=== PATIENT | female | born 1955 | race Caucasian/White ===

== ENCOUNTER → 2016-10-31 | Outpatient (CLI) | payer BC ==
--- NOTE | 2016-11-01 09:14 | WWHP ---
DATE OF DICTATION: 10/31/16. CHIEF COMPLAINT: The patient is here for her routine gynecologic exam and mammogram. HPI: This is a 61-year-old G5, P4-0 -1-4 with an LMP of 2007. The patient does have a history of recurrent urinary tract infections and had two last year. She did use the Macrobid prescription that I had given her and her symptoms resolved quickly during those 2 episodes. She also had one herpes outbreak and again would like a prescription for Valtrex that she can use as needed. She is otherwise without complaints and denies any postmenopausal bleeding. PAST MEDICAL HISTORY: Unremarkable. MEDICATIONS: She is currently on amoxicillin following a tooth extraction which she will be on for a short while. She takes a multivitamin daily. ALLERGIES: No known drug allergies. 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 SOCIAL HISTORY: She denies tobacco and drug use and has 0 to 1 alcohol drinks per week. She is and is not seeing anybody and is not sexually active. 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 REVIEW OF SYSTEMS: She has gained 3 pounds over the last year. She denies respiratory, cardiac, or GI problems. PHYSICAL EXAM: Blood pressure 126/83. Height 5 feet 7 inches. Weight 191 pounds. Temperature 97.7, pulse 73. This is a well-developed, well-nourished female who is alert and oriented x3 in no acute distress. HEENT is within normal limits. NECK: Supple without mass or thyromegaly. CHEST AND LUNGS: Clear to auscultation. HEART: Regular rate and rhythm. Breasts are without mass or discharge. Axillary exam is negative for adenopathy. BACK: Negative for CVA tenderness. ABDOMEN: Soft, nontender, without palpable masses. PELVIC EXAM: External genitalia reveals mild atrophy without lesions. Cervix and vagina reveal mild atrophy without lesions. There is a grade 2 cystocele at rest and a grade 2 to 3 cystocele with Valsalva and this is stable from last year. There is also a grade 2 rectocele noted. There is no significant uterine prolapse. The uterus is midposition, nongravid size and nontender. There are no palpable adnexal masses or tenderness. Rectovaginal exam confirms a small rectocele and is negative for mass or tenderness and is negative for occult blood. EXTREMITIES: Nontender. IMPRESSION: 1. A 61-year-old menopausal female with stable grade 2 to 3 cystocele and a grade 2 rectocele. This is asymptomatic. 2. History of recurrent urinary tract infections with no current urinary symptoms at this time. 3. History of genital HSV with infrequent outbreaks. PLAN: 1. Pap smear was deferred, since she had a normal one last year. 2. Self-breast examination was discussed. 3. Mammogram will be done today. 4. Osteoporosis prevention was discussed. We will plan on performing her first bone density test next year at age 62. 5. A prescription for Macrobid b.i.d. x7 days and was given to the patient with 3 refills. She will use this if she develops her typical UTI symptoms. 6. Valtrex 500 mg b.i.d. x3 days if she develops her typical HSV symptoms. Four refills will be given as well. 7. She will return in one year.
--- NOTE | 2016-11-01 10:20 | MM ---
Reason for exam: screening (asymptomatic). Last mammogram was performed 1 year ago. History: Patient is postmenopausal. Physical Findings: A clinical breast exam by your physician is recommended on an annual basis and results should be correlated with mammographic findings. MG Screening Mammo w CAD Bilateral CC and MLO view(s) were taken. Prior study comparison: October 26, 2015, bilateral MG screening mammo w CAD. February 19, 2015, mammogram, performed at [facility]. February 09, 2014, mammogram, performed at [facility]. There are scattered fibroglandular densities. Finding: There are a few typically benign round calcifications in both breasts. Asymmetric breast tissue. in the right breast, stable. There is no discrete abnormality. ASSESSMENT: Benign, BI-RAD 2 RECOMMENDATION: Routine screening mammogram of both breasts in 1 year.
== END | disposition home or self-care (01) ==
LOC: WWCWWP 15:54
PROVIDERS: ATTEND Obstetrics & Gynecology
DX: Z12.31 Encounter for screening mammogram for malignant neoplasm of breast (principal)

== ENCOUNTER → 2017-11-06 | Outpatient (CLI) | payer BC ==
[2017-11-06 16:08] VITALS: BP 120/79; PULSE 70; TEMP 98; BMI 31.3
--- NOTE | 2017-11-06 16:37 | P.HPOB ---
History of Present Illness H&P Date: 11/06/17 Chief Complaint: The patient is here for her routine gynecologic exam and mammogram. This is a 62-year-old with an LMP of 2007. The patient does have a history of recurrent urinary tract infections. She does not have any urinary symptoms at this time, but is requesting a prescription for Macrobid to be used as needed she will be traveling around the country this summer. She also has infrequent genital herpes outbreaks and she is requesting a prescription for Valtrex to be used as needed. She is without current gynecologic complaints and denies any postmenopausal bleeding. Review of Systems The patient has gained 9 pounds over the last year. She denies respiratory or cardiac problems. G.I.: occasional gastric reflux. 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 She has had genital HSV with infrequent outbreaks since age 20. She has no other history of STDs. History of Any Multi-Drug Resistant Organisms: None Reported Past Surgical History: No Surgical Hx Reported, Section, Cholecystectomy, Orthopedic Surgery (Arthroscopic knee surgery on the right) Additional Past Surgical History / Comment(s): Renal cyst removed in the past. Past Anesthesia/Blood Transfusion Reactions: No Reported Reaction Past Psychological History: No Psychological Hx Reported Smoking Status: Former smoker (Quit smoking at age 27) Past Alcohol Use History: Rare (2 per year) Past Drug Use History: None Reported Additional History: She is . 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 - Past Family History Brother(s) Family Medical History: Cancer (Lung), Diabetes Mellitus Sister(s) Family Medical History: Diabetes Mellitus Mother Family Medical History: Cancer (Lung) Medications and Allergies Home Medications Medication Instructions Recorded Confirmed Type No Known Home Medications [No 11/06/17 11/06/17 History Known Home Medications] Allergies Allergy/AdvReac Type Severity Reaction Status Date / Time No Known Allergies Allergy Unverified 11/06/17 16:05 Exam - Vital Signs Vital signs: Vital Signs Temp Pulse BP 11/06/17 16:05 98.0 F 70 120/79 Intake and Output 11/06/17 11/06/17 11/06/17 06:59 14:59 22:59 Other: Weight 90.718 kg Height 5'7", BMI 31.3. This is a well-developed well-nourished white female who is alert and oriented times 3 in no acute distress. HEENT: Within normal limits. NECK: Supple without mass or thyromegaly. CHEST AND LUNGS: Clear to auscultation. HEART: Regular rate and rhythm. BREASTS: Are without mass or discharge. AXILLARY EXAM: Negative for adenopathy. BACK: Negative for CVA tenderness. ABDOMEN: Soft, nontender, without palpable masses. PELVIC EXAM: Normal external genitalia with mild atrophy. Cervix and vagina reveals a grade 2 cystocele and grade 1 to 2 rectocele. This is stable from previous exams. There is no unusual discharge. The uterus is midposition, nongravid size and nontender. There are no palpable adnexal masses or tenderness. RECTAL EXAM: rectovaginal exam is negative for mass or tenderness and is negative for occult blood. EXTREMITIES: Nontender. IMPRESSION: 1. 62-year-old menopausal female with a grade 2 cystocele and grade 1 to 2 rectocele which is stable from previous exams. 2. Occasional urinary tract infections with no urinary symptoms at this time. 3. History of genital HSV with infrequent outbreaks. PLAN: 1. Pap smear was performed. 2. Self breast awareness was discussed. 3. Screening mammogram will be done today. 4. Osteoporosis prevention was discussed. I have recommended bone density screening. She states she would like to do this next year at her annual visit. 5. An electronic prescription will be sent in for Valtrex 500 mg b.i.d. times 3 days to be started at the onset of HSV symptoms. She will be given 3 refills. Another prescription will be sent for Macrobid b.i.d. times 7 days to be used for UTI symptoms. She will also be given 3 refills on this. 6. She will return in one year.
--- NOTE | 2017-11-07 11:05 | MM ---
Reason for exam: screening (asymptomatic). Last mammogram was performed 1 year ago. History: Patient is postmenopausal. Physical Findings: A clinical breast exam by your physician is recommended on an annual basis and results should be correlated with mammographic findings. MG 3D Screening Mammo W/Cad Bilateral CC and MLO view(s) were taken. Prior study comparison: October 31, 2016, bilateral MG screening mammo w CAD. October 26, 2015, bilateral MG screening mammo w CAD. The breast tissue is heterogeneously dense. This may lower the sensitivity of mammography. Stable benign calcifications. Focal asymmetry upper outer right breast is stable. No significant changes when compared with prior studies. ASSESSMENT: Benign, BI-RAD 2 RECOMMENDATION: Routine screening mammogram of both breasts in 1 year.
== END | disposition home or self-care (01) ==
LOC: WWCWWP 14:55
PROVIDERS: ATTEND Obstetrics & Gynecology
DX: Z12.31 Encounter for screening mammogram for malignant neoplasm of breast (principal)
CPT/HCPCS: 77063; 77067

== ENCOUNTER → 2018-08-08 | Outpatient (CLI) | payer BC ==
--- NOTE | 2018-08-08 15:35 | US ---
EXAMINATION TYPE: US kidneys/renal and bladder DATE OF EXAM: 08/08/2018 COMPARISON: NONE CLINICAL HISTORY: 63-year-old female N28.1 Renal Cyst. TECHNIQUE: Multiple sonographic images of the kidneys and bladder are obtained. 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 She has had surgery on her right kidney, for the UTI's. Right Kidney: 1.7 x 1.0 x 1.6 cm possible complex cystic lesion, irregular contour . Suggestion of mi ld hydronephrosis. Left Kidney: No hydronephrosis seen. Bladder: Prominent urinary bladder distention. Left jet seen Incidental finding of 1.9cm endometrium in post menopausal patient. Patient states she does not take hormone replace therapy. IMPRESSION: 1. There seems to be mild right-sided hydronephrosis. Further clinical correlation recommended to exc lude distal ureteral obstruction. 2. Possible 1.7 cm complex cyst of the upper pole right kidney. Kidney mass protocol CT or MRI can fu rther evaluate. 3. Only the left ureteral jet is seen. 4. Further clinical evaluation of thickened endometrium in a postmenopausal female (1.9 cm). Endometr ial hyperplasia, polyps, or endometrial carcinoma are in the differential.
== END | disposition home or self-care (01) ==
LOC: RADUSWWP 14:15
PROVIDERS: ATTEND Urology
DX: N28.1 Cyst of kidney, acquired (principal)
CPT/HCPCS: 76770

== ENCOUNTER → 2020-07-14 | Outpatient (CLI) | payer BC ==
[2020-07-14 09:01] VITALS: BP 128/79; PULSE 69; RESP 18; TEMP 98.2
--- NOTE | 2020-07-14 09:54 | P.HPOB ---
History of Present Illness H&P Date: 07/14/20 Chief Complaint: The patient is here for her routine gynecologic exam. This is a 65-year-old 014 with an LMP of 2007. The patient is without gynecologic complaints. She is currently on Macrobid for a UTI. UTIs haven't been infrequent this year. She also has not had any HSV outbreaks but would still like to have a prescription available if needed for this. She denies any external vaginal prolapse. Review of Systems She has lost about 10 pounds over the past 2 years. She denies respiratory or cardiac problems. GI: The antibiotic she is taking currently is causing some GI upset. 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 She has had genital HSV with infrequent outbreaks since age 20. She has no other history of STDs. History of Any Multi-Drug Resistant Organisms: None Reported Past Surgical History: No Surgical Hx Reported, Section, Cholecystectomy, Orthopedic Surgery Additional Past Surgical History / Comment(s): Renal cyst removed in the past. Past Anesthesia/Blood Transfusion Reactions: No Reported Reaction Past Psychological History: No Psychological Hx Reported Smoking Status: Former smoker Past Alcohol Use History: Rare (3 per year) Additional Past Alcohol Use History / Comment(s): Quit smoking at age 27. Past Drug Use History: None Reported Additional History: She is . She now works at the [employer]. - Past Family History Brother(s) Family Medical History: Cancer, Diabetes Mellitus Additional Family Medical History / Comment(s): Lungs cancer. Sister(s) Family Medical History: Diabetes Mellitus Mother Family Medical History: Cancer Additional Family Medical History / Comment(s): Lung cancer. Medications and Allergies Home Medications Medication Instructions Recorded Confirmed Type Nitrofurantoin Monohyd/M-Cryst 100 mg PO Q12HR #14 cap 11/06/17 07/14/20 Rx [Macrobid] Cyanocobalamin [Vitamin B-12] 1,000 mcg PO DAILY 07/14/20 07/14/20 History Multivit with Calcium,Iron,Min 1 each PO DAILY 07/14/20 07/14/20 History [Women's Multivitamin] Allergies Allergy/AdvReac Type Severity Reaction Status Date / Time sulfamethoxazole AdvReac Severe Rash/Hives Unverified 05/14/18 11:55 [From Bactrim] trimethoprim [From Bactrim] AdvReac Severe Rash/Hives Unverified 05/14/18 11:55 Exam Vital Signs Temp Pulse Resp BP Pulse Ox 07/14/20 08:59 98.2 F 69 18 128/79 98 Intake and Output 07/13/20 07/14/20 07/14/20 22:59 06:59 14:59 Other: Weight 85.275 kg Height 5 feet 7 inches, weight 188 pounds, BMI 29.4. This is a well-developed well-nourished white female who is alert and oriented times 3 in no acute distress. HEENT: Within normal limits. NECK: Supple without mass or thyromegaly. CHEST AND LUNGS: Clear to auscultation. HEART: Regular rate and rhythm. BREASTS: Are without mass or discharge. AXILLARY EXAM: Negative for adenopathy. BACK: Negative for CVA tenderness. ABDOMEN: Soft, nontender, without palpable masses. PELVIC EXAM: Normal external genitalia with mild atrophy. Cervix and vagina appear normal with mild atrophy. There is no unusual discharge. There is a grade 2 cystocele at rest. This extends to a grade 2-3 cystocele with Valsalva. There is a grade 1 uterine prolapse and a grade 1-2 rectocele. The uterus is midposition, nongravid size and nontender. There are no palpable adnexal masses or tenderness. RECTAL EXAM: Rectovaginal exam is negative for mass or tenderness and is negative for occult blood. EXTREMITIES: Nontender. IMPRESSION: 1. 65-year-old menopausal female with grade 2-3 cystocele, grade 1 uterine prolapse, and grade 1-2 rectocele. This is asymptomatic other than she wonders if this causes UTIs. She has had infrequent UTIs this past year. 2. History of genital HSV with infrequent outbreaks. PLAN: 1. Pap smear cotest was performed. 2. Self breast awareness was discussed with the patient. 3. Screening mammogram is due and the order slip was given to the patient for this. Her appointment is in September 2020. 4. Osteoporosis prevention was discussed. I have stressed the importance of adequate calcium, vitamin D and regular exercise. Recommended amounts of calcium and vitamin D were also discussed. Bone density screening is recommended since she has not had this done. The order slip was given to the patient for this. 5. A prescription for Valtrex [facility] that she can use at the onset of any outbreak. 6. We have discussed pelvic prolapse and she will call she's having issues with this. We have discussed the option of surgery. In her symptoms are worsening she will return for reevaluation. 7. She was advised to return in one year for her annual well woman exam and as needed.
--- NOTE | 2020-07-21 13:22 | P.PN ---
Progress Note - Text Progress Note Date: 07/21/20 OUTPATIENT FOLLOW-UP NOTE TEST(S)/RESULTS: Test results from 07/14/2020 include negative Pap smear and negative high-risk HPV testing. METHOD OF NOTIFICATION: Patient was notified by phone. PATIENT COMMENTS: The patient states she did receive a Covid vaccination DIAGNOSIS: Negative Pap smear cotest. DISCUSSION: PLAN: She was advised to return in one year for her annual well woman exam.
== END | disposition home or self-care (01) ==
LOC: WWCWWP 08:45
PROVIDERS: ATTEND Obstetrics & Gynecology
DX: Z53.9 Procedure and treatment not carried out, unspecified reason (principal)

== ENCOUNTER → 2020-09-22 | Outpatient (CLI) | payer BC ==
--- NOTE | 2020-09-22 10:32 | BD ---
EXAMINATION TYPE: Axial Bone Density DATE OF EXAM: 09/22/2020 COMPARISON: NONE CLINICAL HISTORY: Height: 66 Weight: 186.6 FRAX RISK QUESTIONS: Alcohol (3 or more units per day): no Family History (Parent hip fracture): no Glucocorticoids (More than 3mos): no (Ex: prednisone, prednisolone, methylprednisolone, dexamethasone, and hydrocortisone). History of Fracture in Adulthood: no Secondary Osteoporosis: 1. Type 1 Diabetes: no 2. Hyperthyroidism: no 3. Menopause before 45: no 4. Malnutrition: no 5. Chronic liver disease: no Rheumatoid Arthritis: no Current Tobacco Use: no RISK FACTORS HISTORY OF: Family History of Osteoporosis: no Active: yes Diet low in dairy products/other sources of calcium: no Postmenopausal woman: age 52 Lost more than 2 inches in height since high school: no MEDICATIONS: none Additional History: EXAM MEASUREMENTS: Bone mineral densitometry was performed using the [employer] System. Bone mineral density as measured about the Lumbar spine is: ----- L1-L4(G/cm2): 1.127 T Score Values are as follows: ----- L2: -0.4 ----- L3: -0.8 ----- L4: -0.4 ----- L1-L4: -0.4 Bone mineral density : baseline Bone mineral density about the R hip (g/cm2): 0.910 Bone mineral density about the L hip (g/cm2): 0.910 T Score values are as follows: -----R Neck: -0.9 -----L Neck: -0.9 -----R Total: -0.7 -----L Total: -0.8 Bone mineral density : baseline IMPRESSION: No evidence for osteoporosis or osteopenia. NOTE: T-SCORE=SD OF THE YOUNG ADULT MEAN.
--- NOTE | 2020-09-22 14:04 | P.PN ---
Progress Note - Text Progress Note Date: 09/22/20 OUTPATIENT FOLLOW-UP NOTE TEST(S)/RESULTS: Bone density test done on 09/22/2020 was normal. This was a baseline study. METHOD OF NOTIFICATION: The patient was notified by phone. PATIENT COMMENTS: The patient is happy to hear this result. DIAGNOSIS: Multiple bone density test. DISCUSSION: I have reminded the patient to try to get adequate calcium, vitamin D and regular exercise. PLAN: Repeat bone density test in 5 years.
--- NOTE | 2020-09-23 10:41 | MM ---
Reason for exam: screening (asymptomatic). Last mammogram was performed 2 years and 11 months ago. History: Patient is postmenopausal. Physical Findings: A clinical breast exam by your physician is recommended on an annual basis and results should be correlated with mammographic findings. MG 3D Screening Mammo W/Cad Bilateral CC and MLO view(s) were taken. Prior study comparison: November 06, 2017, bilateral MG 3d screening mammo w/cad. October 31, 2016, bilateral MG screening mammo w CAD. The breast tissue is heterogeneously dense. This may lower the sensitivity of mammography. There is no discrete abnormality. Focal asymmetry upper outer right breast is stable. ASSESSMENT: Benign, BI-RAD 2 RECOMMENDATION: Routine screening mammogram of both breasts in 1 year.
== END | disposition home or self-care (01) ==
LOC: RADMAMWWP 09:31
PROVIDERS: ATTEND Obstetrics & Gynecology
DX: Z12.31 Encounter for screening mammogram for malignant neoplasm of breast (principal); Z13.820 Encounter for screening for osteoporosis; Z78.0 Asymptomatic menopausal state
CPT/HCPCS: 77063; 77067; 77080

== ENCOUNTER → 2021-01-12 | Outpatient (CLI) | payer BC ==
[2021-01-12 11:32] VITALS: BP 118/74; PULSE 82; RESP 18; TEMP 98.3
--- NOTE | 2021-01-12 12:46 | P.PN ---
Progress Note - Text Progress Note Date: 01/12/21 Chief Complaint: Greater bulge from the vagina with more frequent urinary tract infections. HPI: This is a 65-year-old with an LMP of 2007. The patient was recently treated for her third urinary tract infection during the past 7 months. She has a known cystocele and thinks that it is bulging more. She states she can feel something protruding from the vaginal opening at times. She has been trying to empty the bladder as thoroughly as possible when she does void. She is interested in looking into treatment options for the pelvic prolapse. She is not sexually active. ROS: She denies respiratory, cardiac, or GI problems. : As above. PE: Blood pressure: 118/74, Height: 5 feet 6 inches, Weight: 188 pounds, Temperature: 98.3, Pulse: 82. Pulse oximeter 97% This is a well developed, well nourished, white female who is alert and orientedx3, in no acute distress. Abdomen: Soft, nontender, without palpable masses. Pelvic exam: External genitalia reveals mild to moderate atrophy without lesions. With Valsalva a bulge is noted to fill the introitus. Vaginal exam reveals a grade 2 uterine prolapse with a grade 3 cystocele. A grade 1-2 rectocele is also noted. The uterus is mid positioned, nongravid size, and nontender. There are no palpable adnexal masses or tenderness. Impression: 1. 65-year-old menopausal female with symptomatic grade 3 cystocele with grade 2 uterine prolapse and grade 1-2 rectocele. 2. Frequent urinary tract infections during the past 7 months which may be related to decreased emptying of her bladder from the cystocele. Plan: 1. We have had a long discussion regarding options for the pelvic prolapse and symptoms associated with it. We have discussed conservative management, pessary used and surgery. She would like to look into surgical options. 2. We have a long discussion regarding surgical options including cystocele repair, with or without hysterectomy. We have also discussed the option of also having a rectocele repair done at the same time. 3. The patient will be referred to Dr. Stout to discuss possible surgical correction for her pelvic prolapse and symptoms. Time spent with the patient: 35 minutes
--- NOTE | 2021-01-18 18:33 | P.PN ---
Progress Note - Text Progress Note Date: 01/18/21 The patient has called saying she believes she has another urinary tract infection. She is again experiencing dysuria, urinary urgency, and urinary frequency. She did have relief after taking Macrobid last month. We are in the process of making a referral for her cystocele and vaginal prolapse. She has been taking Azo which seems to help with the discomfort. Impression: Recurrent urinary tract infection Plan: She is to give a urine specimen for urinalysis and culture with sensitivity. She will then take Macrobid 1 by mouth twice a day 7 days. The electronic prescription will be sent to [facility] pharmacy on
== END ==
LOC: WWCWWP 11:12
PROVIDERS: ATTEND Obstetrics & Gynecology
DX: N81.4 Uterovaginal prolapse, unspecified (principal); N81.6 Rectocele; Z88.2 Allergy status to sulfonamides; Z87.891 Personal history of nicotine dependence; Z87.440 Personal history of urinary (tract) infections

== ENCOUNTER → 2021-01-19 | Outpatient (CLI) | payer BC ==
[2021-01-19 11:12] LABS: Appearance,Urine Cloudy (Clear); Bacteria,Urine Rare /hpf; Bilirubin,Urine Negative (Negative); Blood,Urine Moderate (Negative); Color,Urine Yellow; Glucose,Urine (UA) Negative (Negative); Ketones,Urine Negative (Negative); Leukocyte Esterase,Urine Large (Negative); Mucus,Urine Rare /hpf; Nitrite,Urine Positive (Negative); PH, Urine 5.5 (5.0-8.0); Protein,Urine 1+ (Negative); RBC,Urine 58 /hpf (0-5); Specific Gravity,Urine 1.019 (1.001-1.035); Squamous Epithelial Cell,Urine 4 /hpf (0-4); Urobilinogen,Urine <2.0 mg/dL (<2.0); WBC,Urine >182 /hpf (0-5)
--- NOTE | 2021-01-20 13:26 | P.PN ---
Progress Note - Text Progress Note Date: 01/20/21 Urinalysis from 01/19/21 was positive for leukocyte esterase and nitrite. A/ cystitis UTI P/Macrobid BID x 7d which patient has started. To call if not fully resolved. Culture is pending
== END | disposition home or self-care (01) ==
LOC: LABWHC1 08:57
PROVIDERS: ATTEND Obstetrics & Gynecology
DX: N30.00 Acute cystitis without hematuria (principal); R30.0 Dysuria; R39.15 Urgency of urination; R35.0 Frequency of micturition
CPT/HCPCS: 81001; 87077; 87086; 87186

== ENCOUNTER → 2023-05-15 | Outpatient (CLI) | payer MEDICARE ==
[2023-05-15 18:12] LABS: Basophils # (A) 0.05 X 10*3/uL (0.00-0.10); Basophils % (A) 0.7 %; Eosinophils # (A) 0.25 X 10*3/uL (0.04-0.35); Eosinophils % (A) 3.3 %; HCT 39.8 % (37.2-46.3); HGB 12.4 g/dL (12.0-15.0); Lymphocytes # (A) 2.77 X 10*3/uL (0.90-5.00); Lymphocytes % (A) 36.9 %; MCH 27.7 pg (27.0-32.0); MCHC 31.2 g/dL (32.0-37.0); Mean Platelet Volume 10.7 FL (9.5-12.2); Monocytes # (A) 0.36 X 10*3/uL (0.20-1.00); Monocytes % (A) 4.8 %; NRBC Per 100 WBC 0 X 10*3/uL (0.00-0.01); Neutrophils # (A) 4.05 X 10*3/uL (1.80-7.70); Platelet Count 264 X 10*3/uL (140-440); RBC 4.47 X 10*6/uL (4.10-5.20); RDW 13.7 % (11.5-14.5)
[2023-05-15 18:17] LABS: Blood Urea Nitrogen 15.3 mg/dL (9.0-27.0); Carbon Dioxide 28.4 mmol/L (21.6-31.8); Chloride 103 mmol/L (96-109); Potassium 4.1 mmol/L (3.5-5.5); Sodium 143 mmol/L (135-145)
== END | disposition home or self-care (01) ==
LOC: LABPAT 14:23
PROVIDERS: ATTEND Obstetrics & Gynecology
DX: Z01.818 Encounter for other preprocedural examination (principal); N81.11 Cystocele, midline
CPT/HCPCS: 80051; 82565; 84520; 85025; 86850; 86900; 86901; 87086; 93005

== ENCOUNTER 2023-05-21 06:45 | Day surgery (SDC) | payer MEDICARE, OTHER ==
[2023-05-14 14:30] VITALS: BMI 29.0
--- NOTE | 2023-05-17 16:55 | P.HPIHPCON ---
History of Present Illness H&P Date: 05/17/23 Chief Complaint: pelvic organ prolapse Ms. Mccord is a 68 year old who presents for surgical management of pelvic organ prolapse. This was first noticed 4 years ago. The patient complaints of a bulge, incomplete emptying of her bladder, and recurrent urinary tract infection (most recently in December of 2022 for which she was treated with tetracycline). The bulge is estimated to be gold ball sized. The patient states she changes position to empty the bladder. She states symptoms are accentuated by standing, lifting, and straining. The symptoms are not relieved by lying down. She denies any recent pelvic pain. She denies urinary incontinence. She is not sexually active and does not plan to be in the future. Consent for Procedure: I have explained the operation/procedure to the patient, including the risks, benefits, side effects, alternative therapies (including not receiving the proposed treatment or service), the likelihood of the patient achieving his/her goals, and potential recuperation problems for the procedure/sedation/analgesia, as well as any blood products, if indicated. I also explained to the patient the risks, benefits and side effects of the alternatives, as well as the risks related to not receiving the proposed procedure, care, treatment, or services. Past Medical History Past Medical History: Diabetes Mellitus, Hyperlipidemia Additional Past Medical History / Comment(s): Hiatal hernia. Chronic left hip problems/pain. Borderline Diabetes. 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 History of Any Multi-Drug Resistant Organisms: None Reported Past Surgical History: Section, Cholecystectomy, Orthopedic Surgery Additional Past Surgical History / Comment(s): Renal cyst removed, right rotator cuff repair, left knee meniscus repair. Past Anesthesia/Blood Transfusion Reactions: No Reported Reaction Past Psychological History: No Psychological Hx Reported Smoking Status: Former smoker Past Alcohol Use History: Rare Additional Past Alcohol Use History / Comment(s): Quit smoking at age 27. Past Drug Use History: None Reported - Past Family History Brother(s) Family Medical History: Cancer, Diabetes Mellitus Additional Family Medical History / Comment(s): Lung cancer. Sister(s) Family Medical History: Diabetes Mellitus Mother Family Medical History: Cancer Additional Family Medical History / Comment(s): Lung cancer. Medications and Allergies Home Medications Medication Instructions Recorded Confirmed Type Multivit with Calcium,Iron,Min 1 each PO DAILY 07/14/20 05/14/23 History [Women's Multivitamin] Acetaminophen [Tylenol Extra 500 mg PO HS 05/14/23 05/14/23 History Strength] carBAMazepine [TEGretol XR] 100 mg PO BID 05/14/23 05/14/23 History Allergies Allergy/AdvReac Type Severity Reaction Status Date / Time ciprofloxacin Allergy Rash/Hives Unverified 05/14/23 14:03 sulfamethoxazole AdvReac Severe Rash/Hives Unverified 05/14/23 14:03 [From Bactrim] trimethoprim [From Bactrim] AdvReac Severe Rash/Hives Unverified 05/14/23 14:03 Surgical - Exam Focused physical exam is performed. This is a healthy-appearing female in no apparent distress. Breathing is non-labored, the patient is conversational. Abdomen is soft and non-tender. Extremities are non-edematous and nontender. Assessment and Plan Assessment: 68 year old with grade 3 pelvic organ prolapse Plan: Risks, benefits, and alternatives to vaginal hysterectomy with bilateral salpingo-oophorectomy and anterior repair were discussed with the patient including risk of bleeding, infection, and damage to surrounding structures including bladder/bowel/ureters. We also discussed that if the fallopian tubes and ovaries are not easily accessible at the time of surgery, they will be left in situ. Patient understands these risks and desires to proceed with surgery. All questions answered. Time with Patient: Less than 30
[2023-05-21] MEDS ORDERED: HYDROmorphone 0.5 MG/0.5 ML SYRINGE IVP PRN (07:00)
[2023-05-21] MEDS ORDERED: ONDANSETRON 4 MG/2 ML VIAL IVP ONE (07:00)
[2023-05-21] MEDS ORDERED: MIDAZOLAM 2 MG/2 ML VIAL IV PRN (07:00)
[2023-05-21] MEDS ORDERED: DEXAMETHASONE SOD PHOSPHATE 4 MG/ML 1 ML VIAL IV ONE (07:00)
[2023-05-21 07:35] LABS: Glucose,Whole Blood 95 mg/dL (70-110)
[2023-05-21] MEDS: LACTATED RINGERS 1,000 ML IV SCH (07:36)
[2023-05-21] MEDS ORDERED: MIDAZOLAM 2 MG/2 ML VIAL IVP ONE (08:06)
[2023-05-21] MEDS ORDERED: fentaNYL (PF) 50 MCG/1 ML VIAL IVP ONE (08:07)
[2023-05-21] MEDS ORDERED: SUCCINYLCHOLINE CHLORIDE 200 MG/10 ML VIAL IV ONE (08:32)
[2023-05-21] MEDS ORDERED: WATER FOR INJECTION, STERILE 10 ML VIAL IV ONE (08:32)
[2023-05-21] MEDS ORDERED: ROCURONIUM 10 MG/ML (5 ML VIAL) IV ONE (08:32)
[2023-05-21] MEDS ORDERED: NEOSTIGMINE 1 MG/ML 10 ML VIAL ONE (08:32)
[2023-05-21] MEDS ORDERED: MORPHINE SULFATE (PF) 0.3 MG/0.3 ML SYR ONE (08:32)
[2023-05-21] MEDS ORDERED: LIDOCAINE 1% INJ 10MG/ML (20 ML MDV) ONE (08:32)
[2023-05-21] MEDS ORDERED: fentaNYL (PF) 50 MCG/ML 2 ML AMP ONE (08:32)
[2023-05-21] MEDS ORDERED: GLYCOPYRROLATE 0.2 MG/ML 2 ML VIAL ONE (08:32)
[2023-05-21] MEDS ORDERED: ePHEDrine 50 MG/ML 1 ML VIAL ONE (08:32)
[2023-05-21] MEDS ORDERED: diphenhydrAMINE 50 MG/ML 1 ML VIAL ONE (08:32)
[2023-05-21] MEDS ORDERED: KETOROLAC 15 MG/ML 1 ML VIAL ONE (08:32)
[2023-05-21] MEDS ORDERED: PROPOFOL 10 MG/ML 20 ML VIAL IV ONE (08:32)
[2023-05-21] MEDS ORDERED: ESTRADIOL 0.1 MG/GM VAGINAL CREAM 42.5 GM TUBE VAGINAL ONE (09:09)
[2023-05-21] MEDS ORDERED: VASOPRESSIN 20 UNIT/ML 1 ML VIAL SQ ONE (09:13)
[2023-05-21] MEDS ORDERED: diphenhydrAMINE 50 MG/ML 1 ML VIAL IVP PRN (10:16)
[2023-05-21] MEDS ORDERED: METOCLOPRAMIDE 5 MG/ML 2 ML VIAL IVP PRN (10:16)
[2023-05-21] MEDS ORDERED: ONDANSETRON 4 MG/2 ML VIAL IVP PRN (10:16)
--- NOTE | 2023-05-21 10:16 | P.OP ---
Date of Procedure: 05/21/23 Preoperative Diagnosis: 1. Grade 3 Cystocele 2. Grade 2 Uterovaginal Prolapse Postoperative Diagnosis: Same Procedure(s) Performed: Total Vaginal Hysterectomy, Anterior Repair Implants: None Anesthesia: CAPO Surgeon: Tonja Valdez Roundsman #1: Rosita Vital Estimated Blood Loss (ml): 50 IV fluids (ml): 500 Urine output (ml): 75 Pathology: other (uterus, cervix) Condition: stable Disposition: floor Indications for Procedure: 68 year old with grade 3 pelvic organ prolapse. Risks, benefits, and alternatives to vaginal hysterectomy with bilateral salpingo-oophorectomy and anterior repair were discussed with the patient including risk of bleeding, infection, and damage to surrounding structures including bladder/bowel/ureters. We also discussed that if the fallopian tubes and ovaries are not easily accessible at the time of surgery, they will be left in situ. Patient understands these risks and desires to proceed with surgery. All questions answered. Operative Findings: Pelvic organ prolapse as described in the indications. Description of Procedure: Prior to the beginning of the procedure the team paused to verify the patient's identity, as well as the procedure to be performed and the correct side/site. All equipment required was ready and available. The patient was positioned appropriately. Patient was cleaned and draped and legs were placed in lithotomy position using Freddy stirrups. Cramer catheter was placed to drain the bladder. A weighted speculum was placed in the posterior vaginal vault. The cervix was grasped with a double-tooth tenaculum. Pitressin was injected circumstantially around the cervix. With downward traction, a circumferential incision was made along the vaginal mucosa overlying the reflection. This allowed dissection and entrance into the posterior cul-de-sac. An 0-Vicryl suture was placed to tag the posterior peritoneum. At this time, the uterosacral ligaments were visualized. These were clamped and ligated with 0-Vicryl suture. The uterosacral ligaments were held bilaterally. The cervicovesical space was then created by both blunt and sharp dissection allowing the cardinal ligaments to be visualized. These were clamped and ligated with 0-Vicryl suture as well. Once in the cervicovesical space the uterosacral-cardinal ligament complex was completely ligated with 0-Vicryl suture. The uterine arteries were clamped and ligated with 0-Vicryl suture. The belen clamps were moved sequentially upward on the uterus until a small adnexal pedicle remained. The anterior cul-de-sac was now entered with electrocautery. The uterine specimen was delivered and sent for pathology. Bilateral adnexal pedicles were doubly ligated first with a transfixing 0-Vicryl suture and then reinforced with a free 0-Vicryl tie in the usual fashion. The large weighted speculum was removed and replaced with the small weighted speculum. A modified Zapata Culdoplasty was performed with the uterosacral ligaments held by pieces of 0-Vicryl. The vaginal cuff inferior to the level of the Zapata Culdoplasty was closed with 0-Vicryl sutures in a [id number] fashion. One [id number] suture was then placed superior to the level of the Zapata Culdoplasty. Attention was then turned to the anterior vaginal wall. Two Allis Clamps were used to grasp the vaginal mucoas and Pitressin was injected inferior to the vaginal epithelium as a means for hydro-dissection. A vertical midline incision was given from under the urethra to the level of the cuff. The underlying endopelvic fascia and cystocele was then dissected away from the vaginal epithelium using Metzenbaum scissors and allis clamps for retraction. The dissection was carried out to the lateral pelvic side wall on either side. A purse-string with 2-0 Vicryl was placed to approximate the endopelvic fascia over the cystocele, thus reducing it. Excess vaginal musosa was trimmed and the remaining vaginal mucosa was closed with 2-0 Vicryl suture. After completion of the case, a cramer catheter was inserted and noted to move freely into the urethra without tension. Clear urine was noted to drain from the catheter. Excellent hemostasis was noted at the end of the case. The vagina was packed with 1/2-inch iodoform packing coated in vaginal estrace cream. All instruments were removed from the patient. She was cleaned, dried, and awakened from anesthesia without difficulty. Sponge, lap, instrument, and needle counts were correct x2. She was taken to the PACU in stable condition.
[2023-05-21 10:50] LABS: Glucose,Whole Blood 148 mg/dL (70-110)
--- NOTE | 2023-05-21 13:22 | P.ANPRN ---
Procedure Note - Anesthesia - Epidural/Spinal Spinal Time Out Performed: Yes Date of Procedure: 05/21/23 Procedure Start Time: 12:07 Procedure Stop Time: 12:12 Location of Patient: PreOp Indication: Acute Post-Operative Pain, Requested by Surgeon (abeba) Sedation Type: Sedate with meaningful contact maintained Preparation: Sterile Prep Number of Attempts: 1 Position: Supine Catheter: None Needle Guage: 25 Injectate: Duramorph 300mcg and fentanyl 25mcg Blood Aspirated: No Pain Paresthesia on Injection Noted: No Events: Uneventful and Well Tolerated
[2023-05-21] MEDS: SENNOSIDES-DOCUSATE SODIUM 1 EACH TAB PO SCH (22:00)
[2023-05-22] MEDS: LACTATED RINGERS 1,000 ML IV SCH (03:09)
[2023-05-22] MEDS: IBUPROFEN 600 MG TAB PO PRN ×2 (03:59→20:18)
--- NOTE | 2023-05-22 09:28 | P.PN ---
Progress Note - Text Progress Note Date: 05/22/23 Ms. Mccord is a 68-year-old female had a history Total Vaginal Hysterectomy, Anterior Repair under general anesthesia, and spinal analgesia with Astramorph 300 g, and 25 g of fentanyl for postop pain. Today patient is comfortable sitting in her bed. Today patient rated her pain level 2 out of 10 in severity. Denied any fever, drowsiness, confusion. Denied any weakness, tingling sensation in her lower extremities. Denied any bowel or bladder problems. Moving all extremities without any difficulty. Able to walk without any difficulties. Vitals: Hemodynamically stable Continue oral pain medication as per primary team.
[2023-05-22 11:02] VITALS: RESP 16
[2023-05-22] MEDS: SENNOSIDES-DOCUSATE SODIUM 1 EACH TAB PO SCH ×2 (11:27→21:31)
[2023-05-22 11:30] LABS: Basophils % (A) 0 %; Eosinophils # (A) 0.1 k/uL (0-0.7); Eosinophils % (A) 1 %; HCT 37.8 % (34.0-46.0); HGB 12.4 gm/dL (11.4-16.0); Lymphocytes # (A) 2.5 k/uL (1.0-4.8); Lymphocytes % (A) 25 %; MCHC 32.9 g/dL (31.0-37.0); Monocytes # (A) 0.3 k/uL (0-1.0); Monocytes % (A) 3 %; Neutrophils # (A) 7.1 k/uL (1.3-7.7); Neutrophils % (A) 70 %; Platelet Count 250 k/uL (150-450); RDW 13.3 % (11.5-15.5); WBC 10.1 k/uL (3.8-10.6)
--- NOTE | 2023-05-22 13:19 | P.EN ---
The patient has mobility limitation that significantly impairs ability to participate in [facility]ADLS in the home. Patient is able to safely use walker. Patient's functional mobility deficit can be resolved by use of a walker.
[2023-05-22] MEDS: ACETAMINOPHEN TAB 325 MG TAB PO PRN ×2 (16:35→23:41)
[2023-05-22] MEDS ORDERED: diphenhydrAMINE 25 MG CAP PO PRN (23:31)
[2023-05-23] MEDS: IBUPROFEN 600 MG TAB PO PRN (06:51)
--- NOTE | 2023-05-23 08:52 | P.DS ---
Providers Date of admission: 05/21/23 Expected date of discharge: 05/23/23 Attending physician: Tonja Valdez MD Primary care physician: REGINO Bass Hospital Course: Ms. Mccord is a 68 year old female who is POD#2 s/p total vaginal hysterectomy and anterior repair for Grade 3 pelvic organ prolapse. Post-operative, she did experience some urinary retention with large post-void residuals that gradually resolved on POD#1 with expectant management. The patient is doing well this morning and had no acute events overnight. She has no complaints this morning. She reports minimal lochia, passing flatus, voiding without difficulty, ambulating, and eating/drinking without nausea or vomiting. She denies chest pain, shortness of breathing, fevers, or chills overnight. She denies pain or swelling in the legs. Postoperative restrictions are reviewed with the patient including pelvic rest for 6 weeks, no lifting heavier than 15 pounds for 4 weeks. The patient is encouraged to call the office if she experiences any heavy bleeding, foul-smelling discharge, or any if she has any other concerns. She will follow up in the office with in 6 weeks for postoperative exam. All questions are answered. Assessment: 68 year old female POD#1 s/p total vaginal hysterectomy, anterior repair.. Patient Condition at Discharge: Good Plan - Discharge Summary Discharge Rx Participant: No New Discharge Prescriptions: New Ibuprofen [Motrin] 600 mg PO Q6HR PRN #30 tab PRN Reason: Mild Pain (Scale 1 To 3) Acetaminophen Tab [Tylenol] 650 mg PO Q6H PRN #30 tab PRN Reason: Mild Pain (Scale 1 To 3) No Action Multivit with Calcium,Iron,Min [Women's Multivitamin] 1 each PO DAILY carBAMazepine [TEGretol XR] 100 mg PO BID Acetaminophen [Tylenol Extra Strength] 500 mg PO HS Discharge Medication List Multivit with Calcium,Iron,Min [Women's Multivitamin] 1 each PO DAILY 07/14/20 [History] Acetaminophen [Tylenol Extra Strength] 500 mg PO HS 05/14/23 [History] carBAMazepine [TEGretol XR] 100 mg PO BID 05/14/23 [History] Acetaminophen Tab [Tylenol] 650 mg PO Q6H PRN #30 tab 05/23/23 [Rx] Ibuprofen [Motrin] 600 mg PO Q6HR PRN #30 tab 05/23/23 [Rx] Follow up Appointment(s)/Referral(s): Tonja Valdez MD [STAFF PHYSICIAN] - 6 Weeks Activity/Diet/Wound Care/Special Instructions: Postoperative Instructions 1. No heavy lifting or straining (exercising) until after 6 week checkup. 2. Do not resume sexual relations for 6 weeks or longer if uncomfortable. 3. Keep abdominal incision clean and dry: You may wear a dressing if more comfortable. 4. Keep any areas repaired with stitches clean and dry. 5. Call the office, , within the next week to make appointment for your 6 week checkup 6. Report any of the following occurrences to the doctor promptly: a. Heavy, excessive bleeding b. Chills, fever c. Burning or frequency of urination d. Pain or redness around the incisions Discharge Disposition: HOME SELF-CARE
[2023-05-23 09:08] VITALS: BP 131/77; PULSE 72; TEMP 98
[2023-05-23] MEDS: SENNOSIDES-DOCUSATE SODIUM 1 EACH TAB PO SCH (10:07)
== END 2023-05-23 10:05 | disposition home or self-care (01) ==
LOC: OR 06:45 → EDSTATUS 09:00 → 4FBP 10:08 → OR 05-23 10:05
PROVIDERS: ATTEND Obstetrics & Gynecology
DX: N80.03 Adenomyosis of the uterus (principal); N81.10 Cystocele, unspecified; E78.5 Hyperlipidemia, unspecified; K44.9 Diaphragmatic hernia without obstruction or gangrene; F10.90 Alcohol use, unspecified, uncomplicated; Z98.890 Other specified postprocedural states; Z87.891 Personal history of nicotine dependence; Z83.3 Family history of diabetes mellitus; Z80.1 Family history of malignant neoplasm of trachea, bronchus and lung; Z79.899 Other long term (current) drug therapy
CPT/HCPCS: 85025; 88307; 58260; 57240; 64999; J2250; J0330; J1200; J1100; J2710; J0690; J2405; J2001; J2274; J3010 ×2; J1885; J2704

== ENCOUNTER → 2023-08-07 | Outpatient (CLI) | payer MEDICARE, OTHER ==
[2023-08-07 13:15] VITALS: BP 111/80; PULSE 89; RESP 17; TEMP 97.8
--- NOTE | 2023-08-07 13:35 | P.HPOB ---
History of Present Illness H&P Date: 08/07/23 Chief Complaint: The patient is here for her routine gynecologic exam and ma mmogram. This is a 68-year-old 014 with an LMP of 2007. The patient is status post vaginal hysterectomy with anterior repair on 05/21/2023. The surgery was done by Dr. Valdez. The patient is without gynecologic complaints. She has a history of genital HSV and denies recent outbreaks. Review of Systems The patient has lost 9 pounds over the last year. She denies respiratory, cardiac, or G.I. problems. Past Medical History Past Medical History: Diabetes Mellitus, Hyperlipidemia Additional Past Medical History / Comment(s): Hiatal hernia. Chronic left hip problems/pain. Borderline Diabetes. 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 History of Any Multi-Drug Resistant Organisms: None Reported Past Surgical History: Section, Cholecystectomy, Hysterectomy, Orthopedic Surgery Additional Past Surgical History / Comment(s): Renal cyst removed, right rotator cuff repair, left knee meniscus repair. Vaginal hysterectomy with cystocele repair 2022. Past Anesthesia/Blood Transfusion Reactions: No Reported Reaction Past Psychological History: No Psychological Hx Reported Smoking Status: Former smoker Past Alcohol Use History: Rare (1 drink per year.) Additional Past Alcohol Use History / Comment(s): Quit smoking at age 27. Past Drug Use History: None Reported Additional History: She is . 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 - Past Family History Brother(s) Family Medical History: Cancer, Diabetes Mellitus Additional Family Medical History / Comment(s): Lung cancer. Sister(s) Family Medical History: Diabetes Mellitus Mother Family Medical History: Cancer Additional Family Medical History / Comment(s): Lung cancer. Medications and Allergies Home Medications Medication Instructions Recorded Confirmed Type Multivit with Calcium,Iron,Min 1 each PO DAILY 07/14/20 05/14/23 History [Women's Multivitamin] Acetaminophen [Tylenol Extra 500 mg PO HS 05/14/23 05/14/23 History Strength] carBAMazepine [TEGretol XR] 100 mg PO BID 05/14/23 05/14/23 History Acetaminophen Tab [Tylenol] 650 mg PO Q6H PRN #30 tab 05/23/23 Rx Ibuprofen [Motrin] 600 mg PO Q6HR PRN #30 tab 05/23/23 Rx Allergies Allergy/AdvReac Type Severity Reaction Status Date / Time ciprofloxacin Allergy Rash/Hives Verified 08/07/23 12:56 sulfamethoxazole AdvReac Severe Rash/Hives Verified 08/07/23 12:56 [From Bactrim] trimethoprim [From Bactrim] AdvReac Severe Rash/Hives Verified 08/07/23 12:56 Exam Vital Signs Temp Pulse Resp BP Pulse Ox 08/07/23 12:58 97.8 F 89 17 111/80 97 08/07/23 12:56 97.8 F 72 17 138/79 97 Intake and Output 08/06/23 08/07/23 08/07/23 22:59 06:59 14:59 Other: Weight 84.368 kg Height 5 feet 6 inches, weight 186 pounds, BMI 30.0. This is a well-developed well-nourished white female who is alert and oriented times 3 in no acute distress. HEENT: Within normal limits. NECK: Supple without mass or thyromegaly. CHEST AND LUNGS: Clear to auscultation. HEART: Regular rate and rhythm. BREASTS: Are without mass or discharge. AXILLARY EXAM: Negative for adenopathy. BACK: Negative for CVA tenderness. ABDOMEN: Soft, nontender, without palpable masses. PELVIC EXAM: External genitalia appears normal with mild atrophy. Vagina appears normal with mild atrophy. There is a grade 1-2 cystocele. The mucosa is well-healed from her hysterectomy. Bimanual examination is negative for mass or tenderness. RECTAL EXAM: Rectovaginal exam is negative for mass or tenderness and is negative for occult blood. EXTREMITIES: Nontender. IMPRESSION: 1. 68-year-old menopausal female status post vaginal hysterectomy with cystocele repair 3 months ago. A small cystocele still noted which is asymptomatic. 2. History of genital HSV without recent outbreaks. PLAN: 1. Pap smears have been discontinued. 2. Self breast awareness was discussed with the patient. We have also discussed symptoms associated with inflammatory breast cancer. 3. Screening mammogram will be done today. 4. Osteoporosis prevention was discussed. I have stressed the importance of adequate calcium, vitamin D and regular exercise. Recommended amounts of calcium and vitamin D were also discussed. Her last bone density test was normal on 09/22/2020. We will plan on repeating this in 2025 5. PHQ-2 questionaire was given and she scores 0. This is a negative screen for depression. 6. Valtrex 500 mg by mouth twice a day 3 days if she has symptoms of a genital HSV outbreak. The electronic prescription will be sent to [facility] pharmacy on [address]. 7. I have stressed the importance of avoiding holding urine longer than usual and avoiding things that increase intra-abdominal pressure such as repetitive heavy lifting. 8. She was advised to return in one year for her annual well woman exam.
== END ==
LOC: WWCWWP 12:37
PROVIDERS: ATTEND Obstetrics & Gynecology
DX: Z12.31 Encounter for screening mammogram for malignant neoplasm of breast (principal); N81.10 Cystocele, unspecified; E11.9 Type 2 diabetes mellitus without complications; E78.5 Hyperlipidemia, unspecified; G89.29 Other chronic pain; Z78.0 Asymptomatic menopausal state; Z87.891 Personal history of nicotine dependence; Z86.19 Personal history of other infectious and parasitic diseases; Z90.710 Acquired absence of both cervix and uterus; Z90.49 Acquired absence of other specified parts of digestive tract; Z88.2 Allergy status to sulfonamides; Z88.1 Allergy status to other antibiotic agents
CPT/HCPCS: 77063; 77067

== ENCOUNTER → 2023-12-31 | Outpatient (CLI) | payer MEDICARE, OTHER ==
--- NOTE | 2024-01-02 12:23 | P.PN ---
Progress Note - Text Progress Note Date: 01/02/24 Late entry: I spoke with the patient by phone on 12/31/2023. Patient states she has developed in HSV outbreak and is requesting treatment. She states she has not had frequent outbreaks. She thinks the outbreak is related to the stress of her recent hip surgery. Impression: History of genital HSV with recent outbreak. Plan: Valtrex 500 mg p.o. twice daily x 3 days. Electronic prescription has been sent to [facility] pharmacy on . refills were be given. She is to call if she has any problems.
== END ==
LOC: WWCWWP 09:55
PROVIDERS: ATTEND Obstetrics & Gynecology
DX: Z04.89 Encounter for examination and observation for other specified reasons (principal); Z87.42 Personal history of other diseases of the female genital tract; Z88.1 Allergy status to other antibiotic agents; Z88.2 Allergy status to sulfonamides; Z87.891 Personal history of nicotine dependence

== ENCOUNTER → 2024-08-12 | Outpatient (CLI) | payer MEDICARE, OTHER ==
[2024-08-12 11:32] VITALS: BP 129/84; PULSE 76; RESP 17; TEMP 98.4
--- NOTE | 2024-08-12 11:50 | MM ---
Reason for Exam: Screening (asymptomatic). Last screening mammogram was performed 12 month(s) ago. Patient History: Menarche at age 14. First Full-Term at age 17. Hysterectomy at age 68. Postmenopausal. Risk Values: Brooklyn 5 year model risk: 1.2%. NCI Lifetime model risk: 4.2%. Prior Study Comparison: 09/22/2020 Bilateral Screening Mammogram, [facility]. 07/25/2022 Bilateral MG 3D screening mammo w/cad, [facility]. 08/07/2023 Bilateral MG 3D screening mammo w/cad, [facility]. Tissue Density: There are scattered areas of fibroglandular density. Findings: Analyzed By CAD. Right breast: There is no suspicious group of microcalcifications or new suspicious mass. Left breast: There is no suspicious group of microcalcifications or new suspicious mass. Overall Assessment: Negative, BI-RAD 1 Management: Screening Mammogram of both breasts in [address] [facility] will attempt to contact patient to return for supplemental views and ultrasound if indicated. Patient should continue monthly self-breast exams. A clinical breast exam by your physician is recommended on an annual basis. This exam should not preclude additional follow-up of suspicious palpable abnormalities. Note on Brooklyn scores and lifetime risk: 1. A Brooklyn score greater than 3% is considered moderate risk. If this is the case, consider specialist referral to assess eligibility for a risk reducing agent. 2. If overall lifetime risk for the development of breast cancer is 20% or higher, the patient may qualify for future screening with alternating mammogram and breast MRI. [facility], , 08/12/2024 11:48 AM. Electronically signed and approved by: Antonio Olson DO
--- NOTE | 2024-08-12 12:14 | P.HPOB ---
History of Present Illness H&P Date: 08/12/24 Chief Complaint: The patient is here for her routine gynecologic exam and ma mmogram. This is a 69-year-old -0-1-4 with an LMP of 2007. She is status post vaginal hysterectomy with anterior repair done for benign reasons. She states she has had 1 genital HSV outbreak during the past year. She is otherwise without complaints. Review of Systems The patient has gained 6 pounds over the last year. She denies respiratory, cardiac, or G.I. problems. Past Medical History Past Medical History: Diabetes Mellitus, Hyperlipidemia Additional Past Medical History / Comment(s): Hiatal hernia. Chronic left hip problems/pain. Borderline Diabetes. 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 Past [employer] history: Genital HSV diagnosed at age 20. History of Any Multi-Drug Resistant Organisms: None Reported Past Surgical History: Section, Cholecystectomy, Hysterectomy, Joint Replacement, Orthopedic Surgery Additional Past Surgical History / Comment(s): Renal cyst removed, right rotator cuff repair, left knee meniscus repair. Vaginal hysterectomy with cystocele repair 2022. Left hip replacement. Past Anesthesia/Blood Transfusion Reactions: No Reported Reaction Past Psychological History: No Psychological Hx Reported Smoking Status: Former smoker Past Alcohol Use History: None Reported Additional Past Alcohol Use History / Comment(s): Quit smoking at age 27. Past Drug Use History: None Reported Additional History: She is . 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 - Past Family History Brother(s) Family Medical History: Cancer, Diabetes Mellitus Additional Family Medical History / Comment(s): Lung cancer. Sister(s) Family Medical History: Diabetes Mellitus Mother Family Medical History: Cancer Additional Family Medical History / Comment(s): Lung cancer. Medications and Allergies Home Medications Medication Instructions Recorded Confirmed Type Multivit with Calcium,Iron,Min 1 each PO DAILY 07/14/20 08/12/24 History [Women's Multivitamin] Acetaminophen [Tylenol Extra 500 mg PO HS 05/14/23 08/12/24 History Strength] carBAMazepine [TEGretol XR] 100 mg PO BID 05/14/23 08/12/24 History Acetaminophen Tab [Tylenol] 650 mg PO Q6H PRN #30 tab 05/23/23 08/12/24 Rx Ibuprofen [Motrin] 600 mg PO Q6HR PRN #30 tab 05/23/23 08/12/24 Rx valACYclovir HCL [Valtrex] 500 mg PO BID #6 tab 08/07/23 08/12/24 Rx Allergies Allergy/AdvReac Type Severity Reaction Status Date / Time ciprofloxacin Allergy Rash/Hives Verified 08/12/24 11:29 sulfamethoxazole AdvReac Severe Rash/Hives Verified 08/12/24 11:29 [From Bactrim] trimethoprim [From Bactrim] AdvReac Severe Rash/Hives Verified 08/12/24 11:29 Exam Vital Signs Temp Pulse Resp BP Pulse Ox 08/12/24 11:30 98.4 F 76 17 129/84 97 Intake and Output 08/11/24 08/12/24 08/12/24 22:59 06:59 14:59 Other: Weight 87.09 kg Height 5 feet 5 inches, weight 192 pounds, BMI 32.0. This is a well-developed well-nourished white female who is alert and oriented times 3 in no acute distress. HEENT: Within normal limits. NECK: Supple without mass or thyromegaly. CHEST AND LUNGS: Clear to auscultation. HEART: Regular rate and rhythm. BREASTS: Are without mass or discharge. AXILLARY EXAM: Negative for adenopathy. BACK: Negative for CVA tenderness. ABDOMEN: Soft, nontender, without palpable masses. PELVIC EXAM: External genitalia appears normal with mild atrophy. Vagina appears normal with mild atrophy. There is a minimal cystocele, grade 1 which is stable from previous exam. Bimanual examination is negative for mass or tenderness. RECTAL EXAM: Rectovaginal exam is negative for mass or tenderness and is negative for occult blood. EXTREMITIES: Nontender. IMPRESSION: 1. 69-year-old menopausal female sling for vaginal hysterectomy for benign reasons with stable minimal grade 1 cystocele which is asymptomatic. 2. History of genital HSV with infrequent outbreaks. She had 1 outbreak in the past 1 year. PLAN: 1. Pap smears have been discontinued. 2. Self breast awareness was discussed with the patient. We have also discussed symptoms associated with inflammatory breast cancer. 3. Screening mammogram was done today. 4. Repeating the bone density test next year. She had a normal bone density test in 2020. 5. Valtrex 500 mg p.o. twice daily x 3 days which she can start if she has genital HSV outbreak symptoms. The electronic prescription will be sent to [facility] on and . 6. She was advised to return in one year for her annual well woman exam.
== END ==
LOC: WWCWWP 10:59
PROVIDERS: ATTEND Obstetrics & Gynecology
DX: Z12.31 Encounter for screening mammogram for malignant neoplasm of breast (principal); N95.0 Postmenopausal bleeding; Z88.1 Allergy status to other antibiotic agents; Z88.2 Allergy status to sulfonamides; Z87.891 Personal history of nicotine dependence
CPT/HCPCS: 77063; 77067